=== PATIENT | male | born 1945 | race Caucasian/White ===

== ENCOUNTER 2024-09-08 07:48 | Day surgery (SDC) | payer MEDICARE, BC ==
[2024-09-01 10:56] LABS: BASOPHILS % (AUTO) 0.7 % (0-1); EOSINOPHILS % (AUTO) 0.4 % (0-6); HEMOGLOBIN 14.2 g/dl (14.0-17.9); LYMPHOCYTES # (AUTO) 0.7 X10'3 (1.1-4.8); LYMPHOCYTES % (AUTO) 12.7 % (21-51); MEAN CORPUSCULAR HEMOGLOBIN 31.2 PG (27.0-31.0); MEAN CORPUSCULAR HGB CONC 33.9 g/dL (33.0-36.5); MEAN CORPUSCULAR VOLUME 91.8 FL (78-98); MONOCYTES # (AUTO) 0.5 X10'3 (0-0.9); MONOCYTES % (AUTO) 8.4 % (2-12); NEUTROPHILS # (AUTO) 4.4 X10'3 (1.8-7.7); NEUTROPHILS % (AUTO) 77.8 % (42-75); PLATELET COUNT 226 X10'3 (140-440); RED BLOOD COUNT 4.57 X10'6 (4.70-6.10); RED CELL DISTRIBUTION WIDTH 13.8 % (11.5-14.5); WHITE BLOOD COUNT 5.6 X10'3 (4.5-11.0)
[2024-09-01 11:22] LABS: ALANINE AMINOTRANSFERASE 29 U/L (12-78); ALBUMIN 3.8 G/DL (3.4-5.0); ALBUMIN/GLOBULIN RATIO 1.2 (1.1-1.5); ALKALINE PHOSPHATASE 55 IU/L (46-116); ANION GAP 9 (8-16); ASPARTATE AMINO TRANSFERASE 22 U/L (10-37); BILIRUBIN,TOTAL 0.8 MG/DL (0.1-1.0); BLOOD UREA NITROGEN 15 MG/DL (7-18); CHLORIDE 103 MMOL/L (99-107); CREATININE 0.88 MG/DL (0.60-1.10); GLUCOSE 101 MG/DL (70-104); POTASSIUM 3.8 MMOL/L (3.5-5.1); SODIUM 138 MMOL/L (135-145); TOTAL CARBON DIOXIDE 26.1 MMOL/L (24-32); TOTAL PROTEIN 7.1 G/DL (6.4-8.2); eGFR 84 ML/MIN
[~2024-09-08] VITALS: Ht 185.4 cm; Wt 83.3 kg
[2024-09-08] MEDS: ceFAZolin 2gm in dextrose, iso 50 ML IV ONE (05:30)
[~2024-09-08 07:48] MED LIST: ASPI-100 PO; BETA1TAB20 PO; BUPIVAcaine/PF 2.5mg/ml (0.25%) 10ml vial ONE; CHLO25TA10 PO; FLO0.4C PO; GLUC15006 PO; LEVO50TA PO; LIDOcaine 2% (20mg/ml) 5ml vial ONE; LOSA1TAB39 PO; MULT-1085 PO; OMEG1CAP46 PO; PRIM50TA5 PO
[2024-09-08] MEDS: ringers solution, lacted 1,000 ML IV SCH (08:30)
[2024-09-08] MEDS: famotidine 20mg tablet PO ONE (08:30)
[2024-09-08 08:55] VITALS: BP 188/81; PULSE 58; RESP 16; TEMP 98.7; O2SAT 100
[2024-09-08] MEDS ORDERED: meperidine/PF 25mg/ml syringe ONE (09:51)
[2024-09-08] MEDS ORDERED: LIDOcaine 0.5% (5mg/ml) 50ml vial ONE (09:51)
[2024-09-08] MEDS ORDERED: ketorolac trometh 30MG/ML vial 30 MG/ML VIAL ONE (09:54)
[2024-09-08] MEDS ORDERED: propofol inj 20 ML IV ONE ×2 (11:01→12:21)
[2024-09-08] MEDS ORDERED: ringers solution, lacted 1,000 ML IV SCH (11:10)
[2024-09-08] MEDS ORDERED: meperidine/PF 25mg/ml syringe IV PRN ×2 (11:10)
[2024-09-08] MEDS ORDERED: HYDROmorphone/PF 0.2 MG/ML SYRINGE IV PRN ×2 (11:10)
[2024-09-08] MEDS ORDERED: labetalol 20mg/4ml (5mg/ml) syringe IV PRN (11:10)
[2024-09-08] MEDS ORDERED: ondansetron/PF 4mg/2ml inj IV PRN (11:10)
[2024-09-08 11:25] VITALS: BP 162/85; PULSE 71; RESP 12; O2SAT 97
[2024-09-08 11:30] VITALS: BP 137/70; PULSE 52; RESP 14; O2SAT 100
[2024-09-08 11:40] VITALS: BP 125/75; PULSE 48; RESP 14; O2SAT 99
[2024-09-08 11:50] VITALS: BP 135/69; PULSE 50; RESP 13; O2SAT 99
[2024-09-08 12:00] VITALS: BP 133/69; PULSE 47; RESP 12; O2SAT 99
[2024-09-08] MEDS ORDERED: LIDOcaine 2% (20mg/ml) 5ml vial ONE (12:21)
== END 2024-09-08 12:25 | disposition home or self-care (01) ==
LOC: PRE-OP 07:48
PROVIDERS: ATTEND Orthopaedic Surgery Hand Surgery
DX: G56.01 Carpal tunnel syndrome, right upper limb (principal); I45.10 Unspecified right bundle-branch block; I10 Essential (primary) hypertension; E03.9 Hypothyroidism, unspecified; Z79.82 Long term (current) use of aspirin; Z79.890 Hormone replacement therapy; Z79.899 Other long term (current) drug therapy; Z96.651 Presence of right artificial knee joint; Z98.890 Other specified postprocedural states
CPT/HCPCS: 36415; 64721; 80053; 82948; 85025; 93005; A4215; A6449; J0690; J1885; J2003; J2175; J2704; J3490; J7030; J7120; Z7506; Z7512; Z7610

== ENCOUNTER 2024-11-03 07:21 | Day surgery (SDC) | payer MEDICARE, BC ==
[2024-10-30 14:16] LABS: BASOPHILS # (AUTO) 0.1 X10'3 (0-0.2); BASOPHILS % (AUTO) 1.3 % (0-1); EOSINOPHILS # (AUTO) 0.1 X10'3 (0-0.9); LYMPHOCYTES # (AUTO) 0.9 X10'3 (1.1-4.8); LYMPHOCYTES % (AUTO) 14.3 % (21-51); MEAN CORPUSCULAR HEMOGLOBIN 31.2 PG (27.0-31.0); MEAN CORPUSCULAR VOLUME 91.9 FL (78-98); MEAN PLATELET VOLUME 8.4 FL (7.4-10.4); MONOCYTES # (AUTO) 0.5 X10'3 (0-0.9); MONOCYTES % (AUTO) 7.6 % (2-12); NEUTROPHILS # (AUTO) 4.7 X10'3 (1.8-7.7); NEUTROPHILS % (AUTO) 75.8 % (42-75); PRE OP HEMATOCRIT 40.7 % (42.0-52.0); PRE OP HEMOGLOBIN 13.8 g/dL (14.0-17.9); PRE OP PLATELET COUNT 243 X10'3 (140-440); PRE OP WHITE BLOOD COUNT 6.2 10'3 (4.8-10.8); RED BLOOD COUNT 4.42 X10'6 (4.70-6.10); RED CELL DISTRIBUTION WIDTH 13.6 % (11.5-14.5)
[2024-10-30 14:32] LABS: ALBUMIN 3.5 G/DL (3.4-5.0); ALBUMIN/GLOBULIN RATIO 1.1 (1.1-1.5); ALKALINE PHOSPHATASE 57 IU/L (46-116); BLOOD UREA NITROGEN 20 MG/DL (7-18); BUN/CREATININE RATIO 24.7 (10.0-20.0); CALCIUM 8.9 MG/DL (8.5-10.1); CHLORIDE 105 MMOL/L (99-107); CREATININE 0.81 MG/DL (0.60-1.10); PRE OP ALT 19 U/L (30-65); PRE OP ANION GAP 4 (8-16); PRE OP AST 17 U/L (10-37); PRE OP BILIRUB, TOTAL 0.5 MG/DL (0.0-1.0); PRE OP GLUCOSE 94 MG/DL (70-104); PRE OP POTASSIUM 4.1 MMOL/L (3.4-5.1); PRE OP SODIUM 139 MMOL/L (135-145); TOTAL CARBON DIOXIDE 29.7 MMOL/L (24-32); TOTAL PROTEIN 6.6 G/DL (6.4-8.2); eGFR > 90 ML/MIN
[2024-11-03] VITALS (7 sets, daily range): BP systolic 153–200; BP diastolic 78–103; PULSE 45–62; RESP 13–16; TEMP 98.6; O2SAT 96–99
[~2024-11-03] VITALS: Ht 185.4 cm; Wt 83.6 kg
[2024-11-03] MEDS: ceFAZolin 2gm in dextrose, iso 50 ML IV ONE (05:30)
[~2024-11-03 07:21] MED LIST changes: -ASPI-100 PO; -BETA1TAB20 PO; -BUPIVAcaine/PF 2.5mg/ml (0.25%) 10ml vial ONE; -GLUC15006 PO; -LIDOcaine 2% (20mg/ml) 5ml vial ONE; -MULT-1085 PO; -OMEG1CAP46 PO
[2024-11-03] MEDS: famotidine 20mg tablet PO ONE (08:02)
[2024-11-03] MEDS: ringers solution, lacted 1,000 ML IV SCH (08:04)
[2024-11-03] MEDS ORDERED: ondansetron/PF 4mg/2ml inj IV PRN (08:30)
[2024-11-03] MEDS ORDERED: morphine 4 MG/ML inj SYRINge IV PRN (08:30)
[2024-11-03] MEDS ORDERED: morphine 2 MG/ML inj. syringe IV PRN (08:30)
[2024-11-03] MEDS ORDERED: proCHLORperazine 10 MG/2 ml inj IV PRN (08:30)
[2024-11-03] MEDS ORDERED: meperidine/PF 25mg/ml syringe IV PRN ×3 (08:30)
[2024-11-03] MEDS ORDERED: ringers solution, lacted 1,000 ML IV SCH (08:30)
[2024-11-03] MEDS ORDERED: fentaNYL/PF 50MCG/1 ML 2ML syringe ONE (09:37)
[2024-11-03] MEDS ORDERED: propofol inj 20 ML IV ONE (09:38)
[2024-11-03] MEDS ORDERED: midazolam 1 mg/ML 2ml injection ONE (09:38)
== END 2024-11-03 11:00 | disposition home or self-care (01) ==
LOC: PAS 07:21 → EDUNIT# 09:30 → PAS 11:00
PROVIDERS: ATTEND Orthopaedic Surgery Hand Surgery
DX: G56.02 Carpal tunnel syndrome, left upper limb (principal); I10 Essential (primary) hypertension; E03.9 Hypothyroidism, unspecified; Z79.899 Other long term (current) drug therapy; Z98.890 Other specified postprocedural states; Z96.651 Presence of right artificial knee joint
CPT/HCPCS: 36415; 64721; 80053; 82948; 85025; A4215; A6449; J0690; J2250; J2704; J3010; J7030; J7120; Z7506; Z7512; Z7610